=== PATIENT | female | born 1995 | race Caucasian/White ===

== ENCOUNTER 2018-09-10 14:20 | Emergency (ER) | payer OTHER ==
[2018-09-10 14:28] VITALS: BP 115/71
--- NOTE | 2018-09-10 15:00 | EDPHY ---
HPI/HX/ROS/PE/MDM Narrative: CHIEF COMPLAINT: Neck injury HPI: This is a healthy 23 y/o female who arrives with her boyfriend for evaluation of neck pain radiating into her arms secondary to a fall while skiing yesterday. She doesn't know quite how she fell but believes she struck one side of her head on the snow. She did not lose consciousness, but felt stunned with mild neck pain and lied in the snow for a short time before getting up and skiing down the rest of the run to return home. Once home, she had notable right-sided neck pain and used Advil and ice packs to treat this. She slept poorly due to pain and upon waking she now had bilateral neck pain that radiated into her right shoulder and down her arm to the level of her elbow. She describes her arm pain as "nerve pain." No obvious weakness or paresthesias associated with this. She denies other injuries, headache, chest pain, abdominal pain, pelvis pain, or other extremity pain. No prior history of neck or spinal problems. REVIEW OF SYSTEMS: A comprehensive 10 system review of systems is otherwise negative aside from elements mentioned in the history of present illness. PMH: Concussion SOCIAL HISTORY: Boyfriend at a bedside. Lives in [place]. [employer] student. PHYSICAL EXAM: General:Patient is alert, in no acute distress. ENT:Eyes are normal to inspection. ENT inspection normal. Neck: Diffuse midline tenderness, bilateral paraspinous tenderness. Respiratory:No respiratory distress. Breath sounds normal bilaterally. Cardiovascular: Regular rate and rhythm. Strong peripheral pulses. Normal cap refill. Abdomen:The abdomen is nontender to palpation. There are no peritoneal signs. Back: Normal to inspection. No tenderness to palpation. Skin: Normal color. No rash. Warm and dry. Extremities: Normal appearance. Full range of motion. Neuro: Oriented x3. Normal motor function. Normal sensory function. No pronator drift. ED Course: Healthy 23 y/o female presents with diffuse neck pain and tenderness radiating into her right arm to the level of her elbow. No weakness on exam. No visible trauma. Cannot exclude based on [facility] neuroimaging CT guidelines. Recommend neck CT to evaluate for injury, which she agrees to. 10mg PO Flexeril ordered for pain. Neck CT: no fracture, disc bulge C4,C5,C6 on left Reassessed patient and discussed findings. Disc bulge on left side does not correlate with her current symptoms, but will still require follow up with neurosurgery. Plan for discharge with standard care instructions including ibuprofen use. Script for Flexeril provided. Return precautions discussed. She is comfortable with this plan. - Data Points Imaging Results: Imaging Impressions Cervical Spine CT 09/10/18 15:00 Impression: 1. Muscle spasm. 2. No fracture or dislocation identified. 3. Possible right sided disk abnormality at C5-C6 If clinically indicated consider cervical MRI. Results discussed with Dr. Pimentel at 3:27 PM. If there is concern for instability, then consider lateral flexion-extension views, cervical fluoroscopy and/or cervical MRI. General information for patients regarding this examination can be found at [email or web address]. If you have questions or comments about this report, please contact me at [phone](hospital) or [phone] (cell). Imaging: Discussed imaging studies w/ rafter cutting machine operator Radiologist, I viewed and interpreted images myself Medications Given: Discontinued Medications Cyclobenzaprine HCl (Flexeril) 10 mg PO EDNOW ONE Stop: 09/10/18 15:09 Last Admin: 09/10/18 15:21 Dose: 10 mg General Time Seen by Provider: 09/10/18 14:47 Initial Vital Signs: Initial Vital Signs Temperature (C) 36.8 C 09/10/18 14:23 Heart Rate 84 09/10/18 14:23 Respiratory Rate 18 09/10/18 14:23 Blood Pressure 115/71 09/10/18 14:23 O2 Sat (%) 100 09/10/18 14:23 O2 Delivery Mode Room Air Allergies/Adverse Reactions: No Known Allergies Allergy (Unverified 09/10/18 14:23) Home Medications: Medication Instructions Recorded Cyclobenzaprine [Flexeril] 10 mg PO TID #15 tab 09/10/18 [place] 09/10/18 methylPREDNISolone [Medrol Dose 1 each PO AD #1 ea 09/10/18 Eriberto] Departure - Departure Disposition: Home, Routine, Self-Care Clinical Impression: Cervical strain Qualifiers: Encounter type: initial encounter Qualified Code(s): S16.1XXA - Strain of muscle, fascia and tendon at neck level, initial encounter Condition: Good Instructions: Cervical Strain (ED), Cyclobenzaprine (By mouth), Methylprednisolone (By mouth) Additional Instructions: 1. Take 600mg ibuprofen every 8 hours for pain and inflammation over the next several days. 2. Use Flexeril (muscle relaxant) as prescribed when needed. This medication can make you drowsy. Do not use prior to driving. 3. Follow up with neurosurgeon (back specialist) in the next week without fail. 4. Return to the ED for severe pain, weakness or numbness on one side of your body, vision changes, speech difficulty, confusion, or other worsening of condition. If symptoms have not improved over the next 2-3 days, take Medrol dose pack ( steroids) as prescribed. Referrals: Arron Simon MD [Medical Doctor] - As per Instructions Prescriptions: Cyclobenzaprine [Flexeril] 10 mg PO TID #15 tab methylPREDNISolone [Medrol Dose Eriberto] 1 each PO AD #1 ea Report Scribed for: Lowell Pimentel Report Scribed by: Josie Contreras Date of Report: 09/10/18 Time of Report: 15:01 Physician Review and Approval Statement: Portions of this note were transcribed by an ED scribe. I personally performed the history, physical exam, and medical decision making; and confirm the accuracy of the information in the transcribed note.
[2018-09-10] MEDS ORDERED: CYCLOBENZAPRINE 10 MG TAB PO ONE (15:08)
== END 2018-09-10 16:02 | disposition home or self-care (01) ==
DX: S16.1XXA Strain of muscle, fascia and tendon at neck level, initial encounter (principal); V00.321A Fall from snow-skis, initial encounter; Y93.23 Activity, snow (alpine) (downhill) skiing, snowboarding, sledding, tobogganing and snow tubing; Y92.828 Other wilderness area as the place of occurrence of the external cause; Y99.8 Other external cause status